=== PATIENT | male | born 1975 | race Caucasian/White ===

== ENCOUNTER 2018-12-01 09:15 | Inpatient (IN) | payer OTHER ==
[~2018-12-01] VITALS: Ht 185.4 cm; Wt 81.6 kg
--- NOTE | 2018-12-01 09:41 | NUR ---
PTE REFIERE DIARREAS, NAUSEAS SE GORDO S/V YSE UBIAC EN AREA DE OBSERVACION
--- NOTE | 2018-12-01 10:36 | NUR ---
MRS RUBIN ORIENTA A PT SOBRE ORDENES MEDICAS, LA CUAL REFIERE ENTENDER. LE COLECTA MUESTRAS Y LO CANALIZA BAJO MEDIDAS ASEPTICAS PT TOLERA.
--- NOTE | 2018-12-01 15:22 | NUR ---
PTE ALERTA Y ORIENTADO X 3 ESFERAS EN LAURA CON BARANDAS ELEVADAS,AREA DE VENOPUNCION PATENTE Y LYN DE EDEMA CON FLUIDOS DE MANTENIMIENTO BAJANDO SIN DIFICULTAD.PENDIENTE A EVALUACION DE DR MAHARAJ.
--- NOTE | 2018-12-01 16:28 | NUR ---
SE LE ADMINISTRAN 2 TYLENOL FLAQUITA MEDIDA ANTIFEBRIL. TEMP. 100.8
== END 2018-12-03 16:23 | disposition home or self-care (01) | DRG 866 ==
LOC: ER 09:15 → EDBD 10:15 → MEDJ 18:06
PROVIDERS: ADMIT Internal Medicine
PROC: 8E0ZXY6 Isolation (ICD-10-PCS; principal; 2018-12-01)
DX: A92.8 Other specified mosquito-borne viral fevers (principal); D69.49 Other primary thrombocytopenia

== ENCOUNTER 2020-11-19 10:05 | Outpatient (CLI) | payer OTHER | END 2020-11-19 10:07 | disposition home or self-care (01) | LOC: NUCLEAR 10:05 | PROVIDERS: ATTEND Internal Medicine | DX: I73.89 Other specified peripheral vascular diseases (principal); I87.2 Venous insufficiency (chronic) (peripheral) ==

== ENCOUNTER 2022-02-24 09:57 | Outpatient (CLI) | payer OTHER | END 2022-02-24 10:24 | disposition home or self-care (01) | LOC: MRI 09:57 | DX: Z00.8 Encounter for other general examination (principal) | CPT/HCPCS: 73221 ==

== ENCOUNTER 2024-11-10 09:16 | Outpatient (CLI) | payer OTHER | END 2024-11-10 09:29 | disposition home or self-care (01) | LOC: MRI 09:16 | PROVIDERS: ATTEND Physical Medicine & Rehabilitation | DX: M54.50 Low back pain, unspecified (principal) | CPT/HCPCS: 72148 ==